=== PATIENT | male | born 1955 | race Two or more races ===

== ENCOUNTER 2025-04-08 07:50 | Emergency (ER) | payer OTHER, MEDICAID, SELFPAY ==
[2025-04-08 07:51] VITALS: BMI 25.0
[2025-04-08 08:10] VITALS: BP 139/83; PULSE 66; RESP 20; TEMP 37.1; O2SAT 97
--- NOTE | 2025-04-08 08:24 | PD.EDRME ---
Rapid Medical Screening Exam RME Arrival date/time: 04/08/25 07:50 Chief Complaint: Head Injury Vital signs: Vital Signs Temperature 98.7 F 04/08/25 08:10 Pulse Rate 66 04/08/25 08:10 Respiratory Rate 20 04/08/25 08:10 Blood Pressure 139/83 H 04/08/25 08:10 Pulse Oximetry (%) 97 04/08/25 08:10 Oxygen Delivery Method Room Air 04/08/25 08:10 97% room air Vital signs reviewed by provider: Yes RME Narrative: Patient hit in the face by a tree branch possibly causing him to lose control of a chainsaw cutting his left arm
--- NOTE | 2025-04-08 08:27 | XR_ITS ---
Examination: CT brain head without contrast. 2-D sagittal coronal reconstructions Date and time of exam:April 08, 2025 0839 hours INDICATIONS: Injury to the head today, head pain CTDI: vol (mGy):49.6 DLP: (mGycm):983 Technique: Multiple CT axial sections of the brain have been obtained, 5 mm slice thickness. Contrast has not been administered. 2-D sagittal, coronal reconstructions have been obtained Low dose protocols were performed. One or more of the following dose reduction techniques were used; automated exposure control, adjustment of the mA and/or KV according to patient size, use of iterative reconstruction technique. Findings: No significant ventricular enlargement. Intra-axial or extra-axial hemorrhage density is not seen. No mass effect or midline shift Basal cisterns are not remarkable. Fourth ventricle is midline. Cranial vault intact. Impression: Negative for acute hemorrhage, mass effect or midline shift
--- NOTE | 2025-04-08 08:27 | XR_ITS ---
Examination: CT maxillofacial, without intravenous contrast. 2-D sagittal reconstructions. 3-D reconstructions. Date and time of exam:April 08, 2025 0839 hours INDICATIONS: Injury to the face today, facial pain CTDI: vol (mGy):22.5 DLP: (mGycm):162 Technique: Multiple axial images of maxillofacial region, 3.0 mm slice thickness. 2-D sagittal and coronal reconstructions. 3-D reconstructions. Low dose protocols were performed. One or more of the following dose reduction techniques were used; automated exposure control, adjustment of the mA and/or KV according to patient size, use of iterative reconstruction technique. Findings: Severe osteopenia Frontal bone intact Orbital rims intact No nasal bone fracture No depression zygomatic arches Pterygoid plates maxilla and the mandible intact The optic globes appear intact Soft tissue swelling external to the right zygomatic arch and maxilla and mandible IMPRESSION: No acute facial fracture.
--- NOTE | 2025-04-08 08:29 | XR_ITS ---
Examination: Humerus 2 views left Technique: Humerus, AP lateral 2 views Date and time of exam: April 08, 2025 0833 hours INDICATIONS: Laceration to the arm today FINDINGS: Large soft tissue defect lateral lower arm No fracture Small calcifications in the soft tissue adjacent to the distal lateral humerus IMPRESSION: Large soft tissue defect lateral lower arm No fracture
--- NOTE | 2025-04-08 09:17 | PD.EDUPEX ---
Upper Extremity Injury RME/HPI General Chief Complaint: Head Injury Stated Complaint: HIT IN HEAD WITH BRANCH, LAC FACE AND LEFT ARM Time Seen by Provider: 04/08/25 09:07 Arrival date/time: 04/08/25 07:50 Limitations: no limitations RME / HPI RME / HPI narrative: Patient hit in the face by a tree branch possibly causing him to lose control of a chainsaw cutting his left arm DR. MARI MAIN ED EVALUATION: 70 year old male with history of hyperlipidemia presents to the ED for evaluation of chainsaw injury to the left upper extremity occurring at 07:30 AM today. States he was cutting a tree when the branch fell on to his face causing him to lose control of the chainsaw, which struck the upper left arm. States the branch caused some lacerations to his face otherwise no other injuries reported. Denied losing consciousness. Denies neck pain. No other associated symptoms or complaints reported. Related Data Previous Rx's ?Medication ?Instructions ?Recorded ondansetron 4 mg disintegrating 4 mg PO Q6H PRN nausea and 02/17/18 tablet vomiting #14 tabs amoxicillin 875 mg-potassium 1 tab PO BID #20 tabs 04/08/25 clavulanate 125 mg tablet Allergies Allergy/AdvReac Type Severity Reaction Status Date / Time PROSTATE MED Allergy Severe Hives Uncoded 04/08/25 07:55 Review of Systems Review of Systems Systems Reviewed: All systems reviewed, normal except as documented Past Medical History Past Medical History CARDIAC: Positive Hypercholesterolemia; Negative Congestive Heart Failure RESPIRATORY: Negative Chronic Obstructive Pulmonary Disease (COPD) GENITOURINARY: Negative Renal Disease ENDOCRINE: Negative Diabetes Mellitus Type 1 or Diabetes Mellitus Type 2 Social History SMOKING STATUS: Never smoker ED Exam General Limitations: Present no limitations General appearance: Present alert and in no apparent distress Head Head exam: Present normocephalic and other (There is a laceration just below the rigth eye measuring 4cm and a laceration to the nasolabial fold measuring 3 cm. ) Eye Eye exam: Present normal appearance, PERRL and EOMI ENT ENT exam: Present normal exam, normal oropharynx and mucous membranes moist Neck Neck exam: Present normal inspection, full ROM and trachea midline Chest Chest inspection: Present normal inspection and symmetric chest wall rise Respiratory Respiratory exam: Present normal lung sounds bilaterally Cardiovascular Cardiovascular exam: Present regular rate, normal rhythm and normal heart sounds Abdominal Exam Abdominal exam: Present soft and normal bowel sounds Extremities Exam Extremities exam: Present full ROM and other (There is a 10cm laceration to the left upper arm) Back Exam Back exam: Present normal inspection and full ROM Neurological Exam Neurological exam: Present alert, oriented X3 and CN II-XII intact Psychiatric Psychiatric exam: Present normal affect and normal mood Skin Skin exam: Present warm, dry, intact and normal color Course Quality Measures none Orders Category Date Time Status Insert [Insert IV] NOW Care 04/08/25 09:[address] facial bones wo con Stat Exams 04/08/25 08:[address] head/brain wo con Stat Exams 04/08/25 08:27 Completed XR humerus LT MIN 2V Stat Exams 04/08/25 08:29 Completed Ketorolac Inj [Toradol Inj] Med 04/08/25 09:32 Discontinued 30 mg IVP X1 ONE Lidocaine 1% 20 ml [Xylocaine 1% 20 ML] Med 04/08/25 11:35 Discontinued 20 ml INFL X1 ONE Lidocaine 1% 20 ml [Xylocaine 1% 20 ML] Med 04/08/25 11:36 Discontinued 20 ml INFL X1 ONE ceFAZolin/D5W 2 GM IV [Ancef 2gm Ivpb] Med 04/08/25 09:33 Discontinued 2 gm in 100 ml IV X1 Vital Signs Vital signs: Vital Signs Temperature 98.7 F 04/08/25 08:10 Pulse Rate 66 04/08/25 08:10 Respiratory Rate 20 04/08/25 08:10 Blood Pressure 139/83 H 04/08/25 08:10 Pulse Oximetry (%) 97 04/08/25 08:10 Oxygen Delivery Method Room Air 04/08/25 08:10 Pulse ox is 97% on room air which is adequate. PROCEDURES: Laceration Laceration 1: Site: upper extremity Side (If applicable): left Size (cm): 10 Description: irregular Depth: simple, single layer Local Anesthetic: lidocaine 1% Amount of anesthesia used (mL): 15 Pre-repair: wound explored, irrigated extensively, deep structures intact and wound margins revised Skin layer closed with: nylon and other (Santino x18) Suture size (cm): 4-0 Number of sutures: 4 Technique: simple, interrupted Laceration 2: Site: face Side (If applicable): right Size (cm): 4 Description: linear Depth: simple, single layer Local Anesthetic: lidocaine 1% Amount of anesthesia used (mL): 5 Pre-repair: wound explored Skin layer closed with: nylon Suture size (cm): 6-0 Number of sutures: 1 Technique: running Laceration 3: Site: face Side (If applicable): right Size (cm): 3 Description: irregular Depth: simple, single layer Local Anesthetic: lidocaine 1% Amount of anesthesia used (mL): 5 Pre-repair: wound explored and wound margins revised Skin layer closed with: nylon Suture size (cm): 6-0 Number of sutures: 6 Technique: simple, interrupted Extremity Injury MDM Narrative MDM Narrative:: Maria C Mercado am scribing for and in the presence of Dr. Mari. Patient data External records reviewed:: [facility] previous records (I reviewed ED visit on 05/18/2024 for evaluation of chest wall pain) Clinical information provided by:: patient Social determinants that could affect healthcare access:: none Patient has the following chronic illnesses:: HLD How is presenting disease/condition affected by chronic disease/condition?: uneffected by Evaluation data The following diagnostics were reviewed and interpreted by me:: lab results and radiology exam(s) Lab and/or radiology exams considered but not ordered:: None Interpretation Summary: Ordering Physician: Sanjay Colbert PA-C Date of Service: 04/08/25 Procedure(s): CT facial bones wo con Accession Number(s): [id number] cc: Gregorio Díaz; Quinten Parr MD; Sanjay Colbert PA-C~ Examination: CT maxillofacial, without intravenous contrast. 2-D sagittal reconstructions. 3-D reconstructions. Date and time of exam:April 08, 2025 0839 hours INDICATIONS: Injury to the face today, facial pain CTDI: vol (mGy):22.5 DLP: (mGycm):162 Technique: Multiple axial images of maxillofacial region, 3.0 mm slice thickness. 2-D sagittal and coronal reconstructions. 3-D reconstructions. Low dose protocols were performed. One or more of the following dose reduction techniques were used; automated exposure control, adjustment of the mA and/or KV according to patient size, use of iterative reconstruction technique. Findings: Severe osteopenia Frontal bone intact Orbital rims intact No nasal bone fracture No depression zygomatic arches Pterygoid plates maxilla and the mandible intact The optic globes appear intact Soft tissue swelling external to the right zygomatic arch and maxilla and mandible IMPRESSION: No acute facial fracture. Dictated By: Quinten Parr MD Signed By: <Electronically signed by Quinten Parr MD in OV> 04/08/2514 Ordering Physician: Sanjay Colbert PA-C Date of Service: 04/08/25 Procedure(s): CT head/brain wo [facility] Accession Number(s): [id number] cc: Gregorio Díaz; Quinten Parr MD; Sanjay Colbert PA-C~ Examination: CT brain head without contrast. 2-D sagittal coronal reconstructions Date and time of exam:April 08, 2025 0839 hours INDICATIONS: Injury to the head today, head pain CTDI: vol (mGy):49.6 DLP: (mGycm):983 Technique: Multiple CT axial sections of the brain have been obtained, 5 mm slice thickness. Contrast has not been administered. 2-D sagittal, coronal reconstructions have been obtained Low dose protocols were performed. One or more of the following dose reduction techniques were used; automated exposure control, adjustment of the mA and/or KV according to patient size, use of iterative reconstruction technique. Findings: No significant ventricular enlargement. Intra-axial or extra-axial hemorrhage density is not seen. No mass effect or midline shift Basal cisterns are not remarkable. Fourth ventricle is midline. Cranial vault intact. Impression: Negative for acute hemorrhage, mass effect or midline shift Dictated By: Quinten Parr MD Signed By: <Electronically signed by Quinten Parr MD in OV> 04/08/2515 Ordering Physician: Sanjay Colbert PA-C Date of Service: 04/08/25 Procedure(s): XR humerus LT MIN 2V Accession Number(s): [id number] cc: Gregorio Díaz; Quinten Parr MD; Sanjay Colbert PA-C~ Examination: Humerus 2 views left Technique: Humerus, AP lateral 2 views Date and time of exam: April 08, 2025 0833 hours INDICATIONS: Laceration to the arm today FINDINGS: Large soft tissue defect lateral lower arm No fracture Small calcifications in the soft tissue adjacent to the distal lateral humerus IMPRESSION: Large soft tissue defect lateral lower arm No fracture Dictated By: Quinten Parr MD Signed By: <Electronically signed by Quinten Parr MD in OV> 04/08/25910 Medications / Prescriptions Medications or Prescriptions considered but not ordered:: None Medication administrations:: Medication Administration History Discontinued Medications Cefazolin Sodium (Ancef 2gm Ivpb) 2 gm in 100 mls @ 100 mls/hr IV X1 ONE Stop: 04/08/25 10:32 Last Infusion: 04/08/25 11:00 Dose: Infused Documented By: Admin: 04/08/25 09:58 Dose: 100 mls/hr Documented By: GM Ketorolac Tromethamine (Ketorolac Inj 30 Mg/Ml Vial) 30 mg IVP X1 ONE Stop: 04/08/25 09:33 Last Admin: 04/08/25 09:54 Dose: 30 mg Documented By: LUIGI Lidocaine HCl (Lidocaine Hcl 1% 20 Ml Vial) 20 ml INFL X1 ONE Stop: 04/08/25 11:36 Last Admin: 04/08/25 12:09 Dose: 20 ml Documented By: LUIGI Comments: MEDICATION GIVEN TO DR. MARI Lidocaine HCl (Lidocaine Hcl 1% 20 Ml Vial) 20 ml INFL X1 ONE Stop: 04/08/25 11:37 Last Admin: 04/08/25 12:09 Dose: 20 ml Documented By: LUIGI Comments: MEDICATION GIVEN TO DR. MARI See above Consultations Consultation(s) initiated? (list below): No Diagnosis Upper Extremity Injury Differential Diagnosis: other (Laceration, abrasion, muscle injury ) Most likely diagnosis given after review of the tests above:: Laceration to multiple sites, left arm and right face Admission Indicated Admission indicated?: not indicated Admission Request Was there a request for admission?: No Disposition Plan Disposition Plan: Discharge Discharge Attestation Discharge Attestation: The patient and all family members were given an opportunity to ask questions and understood the discharge instructions. Discharge instructions specifically effects, indications for sooner follow up or return to the emergency department, and the expected course of current diagnosis. Patient condition: Stable Discharge Plan Plan Patient Disposition: HOME (Self Care) Prescriptions/Referrals Prescriptions/Med Rec: New amoxicillin-pot clavulanate 875-125 mg tablet 1 tab PO BID Qty: 20 0RF No Action ondansetron 4 mg tablet,disintegrating 4 mg PO Q6H PRN (Reason: nausea and vomiting) Qty: 14 0RF Referrals: Gregorio Anand [Primary Care Provider] - In 1 week Problem List Clinical Impression: Laceration of multiple sites Patient/Caregiver Discharge Instructions Education Materials: Incision Care, ED Laceration: All Closures Additional Instructions: For all lacerations, follow up with your doctor within 2 days for wound check. For the facial lacerations, follow up with your doctor in 5 days for suture removal. For the laceration on your left arm, follow up with your doctor in 10 days for suture removal. For pain, take both 1-2 Tylenol 500mg tablets every 6 hours AND 2 Advil Gel 200mg capsules every 6 hours. Print Language: Vietnamese Stand Alone Forms: [employer]., Patient Portal Info Letter
[2025-04-08] MEDS: KETOROLAC INJ 30 MG/ML VIAL IVP (09:54)
[2025-04-08] MEDS: ceFAZolin/D5W 2 GM IV 2 GM/100 ML BAG IV (09:58)
[2025-04-08 10:03] VITALS: BP 142/82; PULSE 65; RESP 16; TEMP 36.9; O2SAT 96
[2025-04-08] MEDS: LIDOCAINE HCL 1% 20 ML VIAL INFL ×2 (12:09)
[2025-04-08 13:41] VITALS: BP 135/81; PULSE 69; RESP 18; TEMP 37.1; O2SAT 95
== END 2025-04-08 14:02 | disposition home or self-care (01) ==
PROVIDERS: Emergency Provider Family Medicine; PCP Physician Assistant
DX: S01.81XA Laceration without foreign body of other part of head, initial encounter (principal); S41.112A Laceration without foreign body of left upper arm, initial encounter; W29.3XXA Contact with powered garden and outdoor hand tools and machinery, initial encounter
CPT/HCPCS: 12004; 12014; 70450; 70486; 73060; 96365; 96375; 99284; J0689; J1885; J3490

== ENCOUNTER → 2025-05-30 | Outpatient (CLI) | payer OTHER, MEDICAID, SELFPAY ==
--- NOTE | 2025-05-30 14:30 | XR_ITS ---
Examination: MRI cervical spine without intravenous contrast Date and time of exam: May 30, 2025 1543 hours INDICATIONS: Neck pain radiating to both shoulders beginning one year ago Technique: Multiple axial and sagittal sections of the cervical spine to been obtained. T2 weighted sagittal sections, TR 3, 270, TE 117 T1-weighted sagittal sections, TR 500, TE 11 T1-weighted axial sections, TR 607, TE 12, axial sections TR 18, TE 27 and T2 weighted transverse sections, TR 3920, TE 122. Findings: Reversal normal cervical lordosis Retrodisplacement C3 relative to C4 3 mm, C4 relative to C5 2 mm C5-C6 2 mm Advanced degenerative disc disease C3 C4 C4 C5 C5 C6 Diffuse cervical disc desiccation Mild increased signal in the cervical cord C3-C6 which may relate to gliosis or ischemia from the spinal stenosis C2-C3 moderate right neural foraminal stenosis C3-C4 severe spinal stenosis, 7 mm central subarticular osteophyte disc complex indenting the ventral margin cervical cord with advanced bilateral neural foraminal stenosis C5-C6 severe spinal stenosis, 6 mm central right paracentral osteophyte disc complex severely indenting the cervical cord, advanced bilateral neural foraminal stenosis C6-C7 severe spinal stenosis, 6 mm central subarticular osteophyte disc complex, indenting the ventral margin cervical cord, advanced bilateral neural foraminal stenosis C7-T1 moderate right neural foraminal stenosis IMPRESSION: Severe acquired spinal stenosis C3-C4, C4-C5, C5-C6
== END | disposition home or self-care (01) ==
LOC: SMRI 14:24
PROVIDERS: PCP Physician Assistant; Referring Provider Nurse Practitioner Family; Visit Provider Nurse Practitioner Family
DX: M48.02 Spinal stenosis, cervical region (principal)
CPT/HCPCS: 72141

== ENCOUNTER → 2025-07-31 | Outpatient (CLI) | payer OTHER, MEDICAID, SELFPAY ==
--- NOTE | 2025-07-31 09:43 | XR_ITS ---
EXAMINATION: Cervical spine, 5 views Technique: Cervical spine AP, AP odontoid, lateral, bilateral obliques, 5 views Exam date and time: July 31, 2025, 0949 hours INDICATIONS: Neck pain 5 months. FINDINGS: Reversal normal cervical lordosis. No acute cervical fracture. Intact odontoid. Advanced degenerative disc disease C3-C4, C4-C5, C5-C6 with moderate to advanced bilateral neuroforaminal stenosis IMPRESSION: Advanced degenerative disc disease C3-C4, C4-C5, C5-C6 with moderate to advanced bilateral neural foraminal stenosis.
== END | disposition home or self-care (01) ==
PROVIDERS: PCP Nurse Practitioner Family; Referring Provider Specialist; Visit Provider Specialist
DX: M50.31 Other cervical disc degeneration, high cervical region (principal); M48.02 Spinal stenosis, cervical region
CPT/HCPCS: 72050